=== PATIENT | male | born 2000 | race American Indian/Alaskan Native ===

== ENCOUNTER 2020-02-20 17:14 | Emergency (ER) | payer MEDICAID ==
[2020-02-20] MEDS ORDERED: LORazepam 2 MG/ML VIAL IV ONE ×2 (17:20→17:24)
[2020-02-20] MEDS ORDERED: SODIUM CHLORIDE 0.9% 1000 ML 1,000 ML IV ONE ×2 (17:24→18:25)
[2020-02-20] MEDS ORDERED: levETIRAcetam 1000 MG/NS 0.75% 1,000 MG/100 ML BAG IV ONE ×4 (17:24→19:28)
[2020-02-20] MEDS ORDERED: LIDOCAINE-MPF (1%) 10 MG/1 ML VIAL 5 ML INFILTRATI ONE (17:29)
[2020-02-20] MEDS ORDERED: VANCOMYCIN 1,000 MG/20 ML IV ONE (17:31)
[2020-02-20] MEDS ORDERED: ACETAMINOPHEN 650 MG RECT SUPP PR ONE ×3 (17:32→17:48)
[2020-02-20] MEDS ORDERED: cefTRIAXone/NS 2 GM/100 ML 2 GM/100 ML BAG IV SCH (18:00)
--- NOTE | 2020-02-20 18:23 | Emergency Department Report ---
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 In addition the patient mother states he has a demyelinating disorder of his brain. She states that he receives infusions of Cerezyme which is the enzyme replacement therapy for Gaucher's disease monthly through the port. His history is complicated by seizures when he was 4 years old and a hip fracture both thought related to Gaucher's disease. He was able to graduate high school recently and did not have any recurrent seizures until approximately 1 month ago. Mother states that he was to have EEG testing soon. Patient arrives with status seizures. History is obtained from the mother. She states that they had just finished having COVID tests drawn when the patient stated that he began to feel hot. She states they had the COVID test done because they had been "inside for a while". They had no symptoms. When they arrived home the patient developed bizarre behavior and started urinating in the open. He then was noted to have some facial twitching. The mother called EMS. The patient has been given several milligrams of Ativan by the time of his arrival. He was still having active and generalized seizures. He was also noted to have a temperature of greater than 103 Fahrenheit. Mother stated that she was unaware of fever and that the patient had not experienced chills. He has had a previous splenectomy. He takes prophylactic penicillin twice daily. He has not had any recent hospitalizations at all or any life- threatening infections. -: Sudden Severity scale (0 -10): 0 Consistency: constant (Seizures) - Related Data Allergies Allergy/AdvReac Type Severity Reaction Status Date / Time acetaminophen Allergy Unknown Verified 02/20/20 18:04 Sulfa (Sulfonamide Allergy Unknown Verified 02/20/20 17:58 Antibiotics) ED Review of Systems ROS: Stated complaint: SEIZURE Other details as noted in HPI Comment: Unobtainable due to pts medical conditions ED Past Medical Hx - Past Medical History Previous Medical History?: Yes Additional medical history: Hip fracture and repair. Splenectomy. Gaucher's disease. Cerebral demyelinating disease. - Social History Substance Use Type: None ED Physical Exam - General Limitations: Other (Active ictus) General appearance: other - Head Head exam: Present: atraumatic - Eye Eye exam: Present: other (Conjugate gaze deviation) Pupils: Present: mydriatic (Somewhat but difficult to visualize). Absent: irregular - Neck Neck exam: Present: normal inspection - Respiratory Respiratory exam: Present: normal lung sounds bilaterally - Cardiovascular Cardiovascular Exam: Present: tachycardia - GI/Abdominal GI/Abdominal exam: Present: soft. Absent: distended - Extremities Exam Extremities exam: Present: normal inspection - Back Exam Back exam: Present: normal inspection - Neurological Exam Neurological exam: Present: other (Actively seizing, conjugate gaze deviation) - Skin Skin exam: Present: other (Old surgical scar intact left hip) ED Course Vital Signs 02/20/20 02/20/20 02/20/20 17:18 17:20 17:30 Temperature 104.2 F H Pulse Rate 173 H 180 H 164 H Respiratory 34 H 38 H Rate Blood Pressure 131/65 104/47 O2 Sat by Pulse 95 95 95 Oximetry 02/20/20 02/20/20 02/20/20 17:40 17:51 18:00 Temperature Pulse Rate 175 H 163 H 159 H Respiratory 42 H 54 H 43 H Rate Blood Pressure 112/57 104/58 96/53 O2 Sat by Pulse 87 93 94 Oximetry 02/20/20 02/20/20 02/20/20 18:10 18:20 18:30 Temperature Pulse Rate 159 H 146 H 142 H Respiratory 33 H 38 H 35 H Rate Blood Pressure 94/50 94/53 96/49 O2 Sat by Pulse 95 95 94 Oximetry 02/20/20 02/20/20 02/20/20 18:43 18:48 18:50 Temperature Pulse Rate 136 H 138 H Respiratory 19 21 23 Rate Blood Pressure 96/47 97/45 O2 Sat by Pulse 96 99 99 Oximetry 02/20/20 19:00 Temperature Pulse Rate 132 H Respiratory 20 Rate Blood Pressure 100/47 O2 Sat by Pulse 100 Oximetry - Reevaluation(s) Reevaluation #1: Patient had aggressive anticonvulsive therapy. This seems to have the largely suppressed his seizures. He was given rectal Tylenol. He was given empiric ceftriaxone and vancomycin considering his splenectomy. He is given fluid resuscitation. I have encouraged the nurses to get him to CT for evaluation. The mother has been counseled as to the need for hospitalization. At this point the patient is maintaining his airway. He is still altered but there are no tonic-clonic movements. There are roving eye movements. Do not believe he is still seizing. It is possible that he may require intubation should he have recurrent seizures and more aggressive anticonvulsive therapy. W e will see what his CT shows. Blood work is yet pending. The POC glucose was 140. 02/20/20 18:26 02/20/20 18:28 Reevaluation #2: I spoke to Dr. Kyle Zazueta the neuro collet driller at [facility]. I felt that the patient would benefit from referral to a tertiary care center with a neuro intensive care unit. She agreed. He recommended that we give the patient 2 additional grams of Keppra now. She agreed with the management thus far. Further care and evaluation will be at [facility]. 02/20/20 19:29 ED Medical Decision Making - Lab Data Result diagrams: 02/20/20 18:06 02/20/20 18:06 Laboratory Results - last 24 hr 02/20/20 02/20/20 02/20/20 17:43 18:06 18:06 WBC 7.1 RBC 5.38 H Hgb 15.0 Hct 46.2 H MCV 86 MCH 28 MCHC 33 RDW 14.8 Plt Count 226 PT INR APTT Sodium 136 L Potassium 4.2 Chloride 94.9 L Carbon Dioxide 13 L Anion Gap 32 BUN 12 Creatinine 1.3 Estimated GFR > 60 BUN/Creatinine Ratio 9 Glucose 138 H POC Glucose 140 H Calcium 9.6 Magnesium Total Bilirubin 0.60 Direct Bilirubin 0.2 Indirect Bilirubin 0.4 AST 41 H ALT 45 Alkaline Phosphatase 102 Total Protein 7.7 Albumin 4.4 Albumin/Globulin Ratio 1.3 02/20/20 02/20/20 18:06 18:06 WBC RBC Hgb Hct MCV MCH MCHC RDW Plt Count PT 15.0 H INR 1.17 H APTT 28.8 Sodium Potassium Chloride Carbon Dioxide Anion Gap BUN Creatinine Estimated GFR BUN/Creatinine Ratio Glucose POC Glucose Calcium Magnesium 2.20 Total Bilirubin Direct Bilirubin Indirect Bilirubin AST ALT Alkaline Phosphatase Total Protein Albumin Albumin/Globulin Ratio - EKG Data -: EKG Interpreted by Me EKG shows normal: sinus rhythm Rate: tachycardia - EKG Data Interpretation: other (Nonspecific repolarization changes) - Radiology Data Radiology results: report reviewed (Chest x-ray no acute process) Critical Care Time: Yes Critical care time in (mins) excluding proc time.: 120 Critical care attestation.: If time is entered above; I have spent that time in minutes in the direct care of this critically ill patient, excluding procedure time. ED Disposition Clinical Impression: Status epilepticus, Gauchers disease Sepsis Qualifiers: Sepsis type: sepsis due to unspecified organism Sepsis acute organ dysfunction status: without acute organ dysfunction Qualified Code(s): A41.9 - Sepsis, unspecified organism Disposition: DC/TX-70 ANOTHER TYPE HLTHCARE Is pt being admited?: No Does the pt Need Aspirin: No Condition: Stable Time of Disposition: 19:31
--- NOTE | 2020-02-20 18:24 | XRay Report ---
CHEST 1 VIEW INDICATION / CLINICAL INFORMATION: hypertension. COMPARISON: None available. FINDINGS: SUPPORT DEVICES: Port terminates near the right atrium.. HEART / MEDIASTINUM: No significant abnormality. LUNGS / PLEURA: No significant pulmonary or pleural abnormality. No pneumothorax. ADDITIONAL FINDINGS: No significant additional findings. IMPRESSION: 1. No acute findings. Signer Name: Chavez Smith MD Signed: 02/20/2020 6:20 PM Workstation Name: [id number]
[2020-02-20 18:34] LABS: Hematocrit 46.2 % (35.5-45.6); Mean Corpuscular HGB Conc 33 % (32-34); Mean Corpuscular Volume 86 fl (84-94); Platelet Count 226 K/mm3 (140-440); Red Blood Count 5.38 M/mm3 (3.65-5.03); Red Cell Distribution Width 14.8 % (13.2-15.2)
[2020-02-20 18:42] LABS: INR 1.17 (0.87-1.13); Partial Thromboplastin Time 28.8 Sec. (24.2-36.6)
[2020-02-20 18:44] LABS: Alanine Aminotransferase 45 units/L (7-56); Albumin 4.4 g/dL (3.9-5); BUN/Creatinine Ratio 9; Bilirubin,Direct 0.2 mg/dL (0-0.2); Blood Urea Nitrogen 12 mg/dL (9-20); Calcium 9.6 mg/dL (8.4-10.2); Hemolysis Index 11
--- NOTE | 2020-02-20 19:07 | Cat Scan Report ---
CT head/brain wo con INDICATION / CLINICAL INFORMATION: 19 years Male; Seizure recurrent. TECHNIQUE: Routine CT head without contrast. All CT scans at this location are performed using CT dos e reduction for ALARA by means of automated exposure control. COMPARISON: None. FINDINGS: BRAIN / INTRACRANIAL CONTENTS: There is notable a decrease attenuation involving the thalami and cere bellar white matter fairly symmetric distribution. A somewhat less prominent changes within the front al and temporal lobe white matter and correlation would be needed regarding chronic findings related to previous hypoxia or metabolic process. There is relative increased attenuation within the caudate legs bilaterally. There is also prominent calcification within the residual cerebellar hemispheres po steriorly. There is no definitive CT evidence of acute intracranial hemorrhage or significant mass ef fect. There is ex vacuo dilatation of the ventricular system, particularly the fourth ventricle. ORBITS: No significant abnormality of visualized orbits. SINUSES / MASTOIDS: The visualized paranasal sinuses are clear. There is notable thinning of the ante rolateral frontal calvarium bilaterally. CRANIOCERVICAL JUNCTION: No significant abnormality. ADDITIONAL FINDINGS: None. IMPRESSION: 1. There are extensive white matter changes and encephalomalacia in fairly symmetric fashion involvin g the thalami, cerebellum and temporal lobes bilaterally as a detailed above. Signer Name: Federico Gibbs MD Signed: 02/20/2020 7:02 PM Workstation Name: [id number]
[2020-02-20 19:17] LABS: Basophils % (Manual) 0 % (0.0-1.8); RBC Morphology Normal; Total Cells Counted 100
[2020-02-20] MEDS ORDERED: VANCOMYCIN 1,750 MG in SODIUM CHLORIDE 0.9% 500 ML 500 ML IV SCH (20:00)
[2020-02-20 22:58] VITALS: BP 112/63
== END 2020-02-20 23:29 | disposition other institution (70) ==
LOC: ED 17:14
DX: A41.9 Sepsis, unspecified organism (principal); G40.901 Epilepsy, unspecified, not intractable, with status epilepticus; E75.22 Gaucher disease; Z98.890 Other specified postprocedural states; Z90.89 Acquired absence of other organs; Z88.2 Allergy status to sulfonamides; Z88.8 Allergy status to other drugs, medicaments and biological substances
CPT/HCPCS: 36415; 70450; 71045; 80048; 80076; 82140; 82962; 83735; 85007; 85025; 85610; 85730; 87040; 93005; 96365; 96366; 96367; 96368; 96375; 96376; 99291; 99292; J0696; J1953; J3370; J7030; J7040